=== PATIENT | female | born 2000 | race Caucasian/White ===

== ENCOUNTER 2024-02-22 06:59 | Day surgery (SDC) | payer OTHER ==
[~2024-02-22] VITALS: Ht 160 cm; Wt 96.1 kg
[~2024-02-22 06:59] MED LIST: ALBU8.5H; CRAN450T4 PO; CYAN1000VL SQ; ETON1VAG3 PO; FERR325T19 PO; HYDR12.55 PO; METF500T13 PO; METO1TAB87 PO; SYNT50TA PO; VITA100093 PO; lions mane
[2024-02-22 07:39] LABS: HEMOGLOBIN 14.1 g/dl (12.0-15.5)
[2024-02-22] MEDS ORDERED: ROCURONIUM BROMIDE 50MG/5ML VIAL As Ordered ONE (07:58)
[2024-02-22] MEDS ORDERED: MIDAZOLAM INJ 2MG/2ML VIAL As Ordered ONE (07:58)
[2024-02-22] MEDS ORDERED: LIDOCAINE 2% 100MG/5ML SDV (FOR ANES.) As Ordered ONE (07:58)
[2024-02-22] MEDS ORDERED: propofoL 200 MG/20 ML VIAL As Ordered ONE (07:58)
[2024-02-22] MEDS ORDERED: fentaNYL 100 MCG/2 ML INJECTION As Ordered ONE (07:58)
[2024-02-22] MEDS: LR 1,000 ML IV SCH (08:12)
[2024-02-22 08:13] LABS: HCG, SERUM QUALITATIVE NEGATIVE (NEGATIVE)
[2024-02-22] MEDS ORDERED: ACETAMINOPHEN 1000MG 100ML IV BAG As Ordered ONE (08:58)
[2024-02-22] MEDS ORDERED: ONDANSETRON 4MG 2ML VIAL As Ordered ONE (09:39)
[2024-02-22] MEDS ORDERED: KETOROLAC 60MG 2ML VIAL As Ordered ONE (09:39)
[2024-02-22] MEDS ORDERED: SUGAMMADEX SODIUM 500 MG/5 ML VIAL (BRIDION) As Ordered ONE (09:39)
[2024-02-22] MEDS: LEVONORGESTREL 52MG (MIRENA) IUD As Ordered ONE (11:00)
[2024-02-22] MEDS ORDERED: LR 1,000 ML IV SCH (11:25)
[2024-02-22] MEDS ORDERED: fentaNYL 100 MCG/2 ML INJECTION IV PRN (11:25)
[2024-02-22] MEDS: ONDANSETRON 4MG 2ML VIAL IV PRN (11:32)
[2024-02-22] MEDS ORDERED: METOCLOPRAMIDE INJ 10MG/2ML VIAL IV PRN (11:55)
[2024-02-22] MEDS: oxyCODONE 5MG TAB PO PRN (11:58)
[2024-02-22 12:24] VITALS: BP 139/95; TEMP 97.4; O2SAT 99
== END 2024-02-22 13:01 | disposition home or self-care (01) ==
LOC: M SDC 06:59
PROVIDERS: ATTEND Obstetrics & Gynecology
DX: N80.00 Endometriosis of the uterus, unspecified (principal); N73.6 Female pelvic peritoneal adhesions (postinfective); Z30.430 Encounter for insertion of intrauterine contraceptive device; Z12.4 Encounter for screening for malignant neoplasm of cervix; R87.615 Unsatisfactory cytologic smear of cervix; R10.2 Pelvic and perineal pain; R94.31 Abnormal electrocardiogram [ECG] [EKG]; I10 Essential (primary) hypertension; E03.9 Hypothyroidism, unspecified; D64.9 Anemia, unspecified; R73.03 Prediabetes; Z88.2 Allergy status to sulfonamides; Z91.048 Other nonmedicinal substance allergy status; Z79.899 Other long term (current) drug therapy; Z79.890 Hormone replacement therapy; Z79.84 Long term (current) use of oral hypoglycemic drugs; F17.290 Nicotine dependence, other tobacco product, uncomplicated
CPT/HCPCS: 36415; 58300; 58558; 58662; 84703; 85014; 85018; 88305; G0123; J0131; J0665; J1100; J1885; J2250; J2405; J3010; J7298

== ENCOUNTER 2024-10-14 19:56 | Emergency (ER) | payer OTHER ==
[~2024-10-14] VITALS: Ht 160 cm; Wt 99.0 kg
[2024-10-14 19:58] VITALS: TEMP 97.2
[2024-10-14 20:24] LABS: BASO % 0.3 % (0.0-1.0); EOS # 0.5 10^3/uL (0.0-0.5); EOS % 4.4 % (0.0-3.0); HEMATOCRIT 43.7 % (36.0-47.0); HEMOGLOBIN 14.3 g/dl (12.0-15.5); LYMPH % 16.4 % (24.0-44.0); MEAN CORPUSCULAR HGB CONC 32.7 g/dl (32.0-36.5); MEAN CORPUSCULAR VOLUME 82.6 fl (80.0-96.0); MONO # 0.6 10^3/uL (0.0-0.8); MONO % 4.9 % (2.0-8.0); NEUTROPHILS # 9.1 10^3/uL (1.5-8.5); NEUTROPHILS % 73.7 % (36.0-66.0); PLATELET COUNT, AUTOMATED 292 10^3/uL (150-450); RED BLOOD COUNT 5.29 10^6/uL (4.00-5.40); WHITE BLOOD COUNT 12.3 10^3/uL (4.0-10.0)
[2024-10-14 20:40] LABS: KETONE, URINE AUTO RFX NEGATIVE (NEGATIVE); MUCUS, URINE RFX SMALL (NEGATIVE); NITRITE, URINE AUTO RFX NEGATIVE (NEGATIVE); RBC, URINE AUTO RFX 5 /HPF (0-3); SQUAM EPITHELIAL CELL UR AURFX 4 /HPF (0-6)
[2024-10-14 20:42] LABS: LEUKOCYTE ESTERASE UR AUTO RFX 2+ (NEGATIVE); WBC, URINE AUTO RFX 81 /HPF (0-3)
[2024-10-14 20:51] LABS: BLOOD UREA NITROGEN 13 MG/DL (9-23); CALCIUM LEVEL 9.3 MG/DL (8.5-10.1); CARBON DIOXIDE LEVEL 28 MMOL/L (20-31); CHLORIDE LEVEL 105 MMOL/L (98-107); CREATININE FOR GFR 0.85 MG/DL (0.55-1.30); GLOMERULAR FILTRATION RATE > 60.0 (>60); GLUCOSE, FASTING 98 MG/DL (60-100); POTASSIUM SERUM 3.5 MMOL/L (3.5-5.1); SODIUM LEVEL 143 MMOL/L (136-145)
[2024-10-14 20:53] LABS: CPK CREATINE PHOSPHOKINASE 167 U/L (34-145); MB/CK RELATIVE INDEX 0.59 (< OR =4)
[2024-10-14 21:05] LABS: HCG, SERUM QUALITATIVE NEGATIVE (NEGATIVE)
[2024-10-14] MEDS: MAALOX 30 ML SUSP *UDC PO ONE (21:29)
[2024-10-14] MEDS: LIDOCAINE VISCOUS 2% SOLN 15ML UDC PO ONE (21:30)
[2024-10-14] MEDS: SUCRALFATE SUSP 1GM/10ML UD PO ONE (21:30)
[2024-10-14 22:15] VITALS: BP 142/86; O2SAT 98
[2024-10-14] MEDS ORDERED: CARA1TAB6 PO (22:17)
[2024-10-14] MEDS ORDERED: PEPC1TAB5 PO (22:17)
[2024-10-14] MEDS ORDERED: CEFD1CAP9 PO (22:18)
== END 2024-10-14 22:36 | disposition home or self-care (01) ==
LOC: M ED 19:56
DX: K29.70 Gastritis, unspecified, without bleeding (principal); N39.0 Urinary tract infection, site not specified; E11.9 Type 2 diabetes mellitus without complications; I10 Essential (primary) hypertension; E03.9 Hypothyroidism, unspecified; J45.909 Unspecified asthma, uncomplicated; Z79.84 Long term (current) use of oral hypoglycemic drugs; Z79.899 Other long term (current) drug therapy; Z88.2 Allergy status to sulfonamides; Z91.89 Other specified personal risk factors, not elsewhere classified

== ENCOUNTER 2025-05-15 22:19 | Emergency (ER) | payer OTHER ==
[~2025-05-15] VITALS: Ht 160 cm; Wt 97.7 kg
[2025-05-15 22:21] VITALS: BP 159/98; TEMP 97.5; O2SAT 97
[2025-05-15 23:57] LABS: BASO # 0.1 10^3/uL (0.0-0.2); BASO % 0.3 % (0.0-1.0); EOS # 0.2 10^3/uL (0.0-0.5); EOS % 0.9 % (0.0-3.0); LYMPH # 2.1 10^3/uL (1.5-5.0); LYMPH % 13.2 % (24.0-44.0); MONO # 0.9 10^3/uL (0.0-0.8); MONO % 5.6 % (2.0-8.0); NEUTROPHILS # 12.9 10^3/uL (1.5-8.5); NEUTROPHILS % 79.6 % (36.0-66.0); PLATELET COUNT, AUTOMATED 326 10^3/uL (150-450)
[2025-05-16 00:25] LABS: ALT/SGPT 45 U/L (7.0-40); AST/SGOT 27 U/L (<34); CALCIUM LEVEL 9.4 MG/DL (8.5-10.1); CARBON DIOXIDE LEVEL 28 MMOL/L (20-31); CHLORIDE LEVEL 104 MMOL/L (98-107); CREATININE FOR GFR 0.96 MG/DL (0.55-1.30); GLOMERULAR FILTRATION RATE 85.3 (>60); POTASSIUM SERUM 4.2 MMOL/L (3.5-5.1); SODIUM LEVEL 142 MMOL/L (136-145)
[2025-05-16 00:27] LABS: HCG, SERUM QUALITATIVE NEGATIVE (NEGATIVE)
== END 2025-05-16 01:15 | disposition left against medical advice (07) ==
LOC: M ED 22:19
DX: Z53.21 Procedure and treatment not carried out due to patient leaving prior to being seen by health care provider (principal)

== ENCOUNTER → 2025-05-15 | Outpatient (REF) | payer OTHER ==
[~2025-05-15] MED LIST changes: +CARA1TAB6 PO; +CEFD1CAP9 PO; +PEPC1TAB5 PO
[2025-05-15 21:53] LABS: Trichomonas vaginalis (AMP) NOT DETECTED (NEGATIVE)
[2025-05-15 22:16] LABS: GC DNA AMPLIFICATION NEGATIVE (NEGATIVE)
== END ==
LOC: M LAB REF 20:03
PROVIDERS: ATTEND Physician Assistant
DX: R30.0 Dysuria (principal)